=== PATIENT | female | born 1935 | race African-American/Black ===

== ENCOUNTER 2021-04-29 17:24 | Emergency (ER) | payer MEDICARE, MEDICAID ==
[~2021-04-29] VITALS: Ht 157.5 cm; Wt 69.0 kg
[2021-04-29 20:54] LABS: CLARITY URINE CLEAR (CLEAR); COLOR URINE YELLOW (YELLOW); KETONES URINE NEGATIVE (NEGATIVE); LEUKOCYTE ESTERASE URINE NEGATIVE (NEGATIVE); NITRITE URINE NEGATIVE (NEGATIVE); OCCULT BLOOD URINE TRACE (NEGATIVE); PH URINE 7.5 (4.5-8.0); PROTEIN URINE NEGATIVE (NEGATIVE); SPECIFIC GRAVITY URINE 1.011 (1.005-1.030); UROBILINOGEN URINE 0.2 E.U./dL (0.2-1.0)
[2021-04-29] MEDS ORDERED: METOCLOPRAMIDE HCL 10MG/2ML VIAL IV STA (23:40)
[2021-04-29] MEDS ORDERED: DICYCLOMINE 10 MG/5 ML ORAL SYR PO STA (23:40)
[2021-04-29] MEDS ORDERED: MORPHINE SULFATE 4 MG/ML CPJ (NOT FOR IM USE) IV STA (23:40)
[2021-04-29] MEDS ORDERED: VISCOUS LIDOCAINE 2% 15 ML UDC PO STA (23:40)
[2021-04-29] MEDS ORDERED: MAGNESIUM/ALUMINUM HYDROXIDE/SIMETHICONE 30ML UDC PO STA (23:40)
[2021-04-30 00:13] LABS: BASOPHILS % 0.8 % (0.0-2.0); HEMATOCRIT. 35.9 % (36.0-48.0); HEMOGLOBIN. 11.9 g/dL (12.0-16.0); LYMPHOCYTES % 28.5 % (20.0-50.0); MEAN CORPUSCULAR HEMOGLOBIN 28.4 pg (28.0-32.0); MEAN CORPUSCULAR VOLUME 86.1 fL (81.0-99.0); MEAN PLATELET VOLUME 8.1 fl (7.4-10.4); MONOCYTES % 4.4 % (2.0-8.0); NEUTROPHILS % 65.3 % (40.0-76.0); PLATELET 258 x1000/uL (130-400); RED BLOOD CELL COUNT 4.17 mill/uL (4.2-5.4); RED CELL DISTRIBUTION WIDTH 16.2 % (11.6-14.6)
[2021-04-30 00:28] LABS: CHLORIDE 100 mEq/L (98-107)
[2021-04-30 00:31] LABS: AMYLASE 92 IU/L (25-115)
[2021-04-30] MEDS ORDERED: CEFTRIAXONE 1 G PREMIX 50 ML IV ONE (01:00)
[2021-04-30] MEDS ORDERED: POTASSIUM CHLORIDE 20MEQ TABLET SR PO ONE (01:15)
[2021-04-30] MEDS ORDERED: HYDROCODONE/ACETAMINOPHEN 5/325MG TABLET PO PRN (10:45)
[2021-04-30] MEDS ORDERED: LIDOCAINE HCL 4% (40MG/ML) SOLN 50ML TOP SCH (10:45)
[2021-04-30] MEDS ORDERED: LIDOCAINE 5% PATCH TOP SCH (12:00)
[2021-04-30 14:38] VITALS: BP 130/85
== END 2021-04-30 14:20 | disposition home or self-care (01) ==
LOC: ER 17:24 → CANBEDREQ 04-30 13:39 → ER 04-30 14:20
DX: N39.0 Urinary tract infection, site not specified (principal); R11.2 Nausea with vomiting, unspecified; E87.6 Hypokalemia; E03.9 Hypothyroidism, unspecified
CPT/HCPCS: 36415; 71045; 74176; 80053; 81003; 82150; 83690; 83880; 84443; 84484; 85025; 93005; 96365; 96375; 99285; J0696; J2270; J2765

== ENCOUNTER 2022-04-10 15:41 | Emergency (ER) | payer MEDICARE, MEDICAID ==
[~2022-04-10] VITALS: Ht 162.6 cm; Wt 66.0 kg
[2022-04-10 15:55] VITALS: BP 136/95
== END 2022-04-10 21:17 | disposition left against medical advice (07) ==
LOC: ER 15:41
DX: Z53.21 Procedure and treatment not carried out due to patient leaving prior to being seen by health care provider (principal)